=== PATIENT | male | born 1985 | race Caucasian/White ===

== ENCOUNTER 2020-07-17 14:13 | Inpatient (IN) | payer MEDICAID ==
[~2020-07-17] VITALS: Ht 170.2 cm; Wt 140.6 kg
[2020-07-17] MEDS ORDERED: ACETAMINOPHEN 325MG TABLET PO STA (14:55)
[2020-07-17] MEDS ORDERED: SODIUM CHLORIDE 0.9% 1,000 ML IV ONE (14:55)
[2020-07-17 15:45] LABS: BASOPHILS % 0.6 % (0.0-2.0); EOSINOPHILS % 1.9 % (0.0-5.0); HEMOGLOBIN. 12.8 g/dL (14.0-18.0); MEAN CORPUSCULAR VOLUME 94.9 fL (80.0-94.0); MEAN PLATELET VOLUME 8.7 fl (7.4-10.4); MONOCYTES % 5.6 % (2.0-8.0); NEUTROPHILS % 82.9 % (40.0-76.0); PLATELET 285 x1000/uL (130-400); RED CELL DISTRIBUTION WIDTH 13.8 % (11.6-14.6)
[2020-07-17 15:51] LABS: CHLORIDE 103 mEq/L (98-107)
[2020-07-17] MEDS ORDERED: CEFTRIAXONE 1 G PREMIX 50 ML IV ONE (16:00)
[2020-07-17] MEDS ORDERED: AZITHROMYCIN 500 MG in DEXT 5% WATER 250 ML IV ONE (16:00)
[2020-07-17 16:47] LABS: BG BASE EXCESS -1.6 mmol/L (-2.0-2.0); BG CARBOXYHEMOGLOBIN 0.3 % (0.5-1.5); BG DEOXYHEMOGLOBIN 7.4 % (0.0-5.0); BG FRACTION INSPIRED OXYGEN 36; BG METHEMOGLOBIN 0.4 % (0.0-1.5); BG OXYGEN SATURATION 92.5 % (92.0-98.5); BG OXYHEMOGLOBIN 91.9 % (94.0-97.0); BG PH 7.505 (7.350-7.450); BG PO2 62.6 mmHg (75.0-100.0); BG SAMPLE SITE RIGHT RADIAL; BG TOTAL HEMOGLOBIN 13.1 g/dL (12.0-18.0); BG VENT MODE NASAL CANNULA
[2020-07-17 18:02] LABS: BG CARBOXYHEMOGLOBIN 0.8 % (0.5-1.5); BG FRACTION INSPIRED OXYGEN 36; BG HCO3 ACT 21.7 mmol/L (22.0-26.0); BG METHEMOGLOBIN 0.2 % (0.0-1.5); BG OXYGEN SATURATION 92.9 % (92.0-98.5); BG PCO2 30.7 mmHg (35.0-45.0); BG PH 7.468 (7.350-7.450); BG PO2 65.9 mmHg (75.0-100.0); BG SAMPLE SITE RIGHT RADIAL; BG TOTAL HEMOGLOBIN 13.2 g/dL (12.0-18.0); BG VENT MODE NASAL CANNULA
[2020-07-17 18:07] LABS: CLARITY URINE CLEAR (CLEAR); COLOR URINE DARK YELLOW (YELLOW); KETONES URINE NEGATIVE (NEGATIVE); LEUKOCYTE ESTERASE URINE TRACE (NEGATIVE); NITRITE URINE NEGATIVE (NEGATIVE); OCCULT BLOOD URINE NEGATIVE (NEGATIVE); PH URINE 6.5 (4.5-8.0); PROTEIN URINE 1+ (NEGATIVE); SPECIFIC GRAVITY URINE 1.023 (1.005-1.030); UROBILINOGEN URINE >8.0 E.U./dL (0.2-1.0)
[2020-07-17] MEDS ORDERED: ACETAMINOPHEN 325MG TABLET PO PRN (22:45)
[2020-07-17] MEDS ORDERED: CEFTRIAXONE 1 G PREMIX 50 ML IV SCH (22:45)
[2020-07-17] MEDS ORDERED: AZITHROMYCIN 500 MG in DEXT 5% WATER 250 ML IV SCH (22:45)
[2020-07-17] MEDS ORDERED: ZOLPIDEM TARTRATE 5MG TABLET PO PRN (22:45)
[2020-07-17] MEDS ORDERED: POTASSIUM CHLORIDE 20MEQ TABLET SR PO NR (23:15)
[2020-07-18] MEDS ORDERED: IPRATROPIUM/ALBUTEROL 0.5-3(2.5)MG/3ML NEB HHN SCH
[2020-07-18 04:42] VITALS: BP 168/103
[2020-07-18] MEDS ORDERED: PHEN1PAC8 PO (05:18)
[2020-07-18] MEDS ORDERED: IBUP-516 MT (05:19)
[2020-07-18 07:50] LABS: BASOPHILS % 0.3 % (0.0-2.0); EOSINOPHILS % 0.7 % (0.0-5.0); HEMATOCRIT. 39.4 % (42.0-52.0); HEMOGLOBIN. 13.2 g/dL (14.0-18.0); LYMPHOCYTES % 8.3 % (20.0-50.0); MEAN CORPUSCULAR HEMOGLOBIN 31.5 pg (28.0-32.0); MEAN CORPUSCULAR VOLUME 94.1 fL (80.0-94.0); MONOCYTES % 7.6 % (2.0-8.0); NEUTROPHILS % 83.1 % (40.0-76.0); PLATELET 289 x1000/uL (130-400); RED BLOOD CELL COUNT 4.18 mill/uL (4.7-6.1); RED CELL DISTRIBUTION WIDTH 13.6 % (11.6-14.6)
[2020-07-18 08:00] VITALS: BP 178/117
[2020-07-18] MEDS ORDERED: PNEUMOCOCCAL 23-VAL P-SAC VAC 0.5 ML IM ONE (08:00)
[2020-07-18 08:01] LABS: CHLORIDE 104 mEq/L (98-107)
[2020-07-18] MEDS ORDERED: DEXAMETHASONE 4MG TABLET PO SCH (09:00)
[2020-07-18] MEDS: ENOXAPARIN 40MG/0.4ML SYR SUBCUT SCH ×2 (09:48→20:10)
[2020-07-18] MEDS: FAMOTIDINE 20MG TABLET PO SCH ×2 (09:49→16:32)
[2020-07-18] MEDS ORDERED: ACETAMINOPHEN 325MG TABLET PO PRN (11:00)
[2020-07-18] MEDS ORDERED: CLONIDINE 0.1MG TABLET PO PRN (11:00)
[2020-07-18] MEDS: LOSARTAN POTASSIUM 100 MG TABLET PO SCH (11:23)
[2020-07-18 12:00] VITALS: BP 150/95
[2020-07-18] MEDS ORDERED: ALBUTEROL 6.7GM HFA INHALER ORI PRN (12:00)
[2020-07-18] MEDS: CEFTRIAXONE 1,000 MG in DEXTROSE 5% WATER 50 ML IV SCH (14:11)
[2020-07-18 16:00] VITALS: BP 153/80
[2020-07-18] MEDS: ALPRAZOLAM 0.5 MG TABLET PO PRN (16:32)
[2020-07-18] MEDS: AZITHROMYCIN 500MG in DEXTROSE 5% WATER 250ML IV SCH (17:24)
[2020-07-18 20:00] VITALS: BP 101/68
[2020-07-18 23:20] LABS: *AMPHETAMINES SCREEN URINE NEGATIVE (NEGATIVE); *BARBITURATES SCREEN URINE NEGATIVE (NEGATIVE); *BENZODIAZEPINES SCREEN URINE NEGATIVE (NEGATIVE); *COCAINE SCREEN URINE NEGATIVE (NEGATIVE)
[2020-07-18 23:21] LABS: CANNABINOID URINE SCREEN NEGATIVE (NEGATIVE); METHADONE URINE SCREEN NEGATIVE (NEGATIVE); PHENCYCLIDINE URINE SCREEN NEGATIVE (NEGATIVE)
[2020-07-18 23:22] LABS: OPIATES URINE SCREEN NEGATIVE (NEGATIVE)
[2020-07-19] VITALS: BP 126/93
[2020-07-19 04:00] VITALS: BP 127/88
[2020-07-19 06:29] LABS: CHLORIDE 102 mEq/L (98-107)
[2020-07-19 06:30] LABS: HEMATOCRIT. 37.5 % (42.0-52.0); HEMOGLOBIN. 12.3 g/dL (14.0-18.0); MEAN CORPUSCULAR HEMOGLOBIN 31.4 pg (28.0-32.0); MEAN CORPUSCULAR VOLUME 95.6 fL (80.0-94.0); MEAN PLATELET VOLUME 8.3 fl (7.4-10.4); PLATELET 331 x1000/uL (130-400); RED BLOOD CELL COUNT 3.92 mill/uL (4.7-6.1); RED CELL DISTRIBUTION WIDTH 13.8 % (11.6-14.6)
[2020-07-19 08:00] VITALS: BP 145/88
[2020-07-19] MEDS: DEXAMETHASONE 10 MG/ML VIAL IV SCH (08:23)
[2020-07-19] MEDS: ALPRAZOLAM 0.5 MG TABLET PO PRN (08:24)
[2020-07-19] MEDS: FAMOTIDINE 20MG TABLET PO SCH ×2 (08:24→16:09)
[2020-07-19] MEDS: ENOXAPARIN 40MG/0.4ML SYR SUBCUT SCH ×2 (08:24→19:56)
[2020-07-19] MEDS: LOSARTAN POTASSIUM 100 MG TABLET PO SCH (08:24)
[2020-07-19 11:20] LABS: PLATELET ESTIMATE NORMAL
[2020-07-19 12:00] VITALS: BP 125/96
[2020-07-19] MEDS ORDERED: VANCOMYCIN 2,000 MG in DEXT 5% WATER 500 ML IV SCH (12:00)
[2020-07-19] MEDS: CEFTRIAXONE 1,000 MG in DEXTROSE 5% WATER 50 ML IV SCH (13:54)
[2020-07-19] MEDS: AZITHROMYCIN 500MG in DEXTROSE 5% WATER 250ML IV SCH (14:01)
[2020-07-19 16:00] VITALS: BP 122/83
[2020-07-19] MEDS: VANCOMYCIN 1500MG in DEXTROSE 5% WATER 250ML IV SCH (19:56)
[2020-07-19 20:00] VITALS: BP 132/69
[2020-07-20] VITALS (7 sets, daily range): BP systolic 115–137; BP diastolic 56–90
[2020-07-20] MEDS: VANCOMYCIN 1500MG in DEXTROSE 5% WATER 250ML IV SCH ×2 (03:37→11:06)
[2020-07-20 07:17] LABS: BASOPHILS % 0.5 % (0.0-2.0); EOSINOPHILS % 0.2 % (0.0-5.0); HEMATOCRIT. 35.7 % (42.0-52.0); HEMOGLOBIN. 11.9 g/dL (14.0-18.0); LYMPHOCYTES % 8.8 % (20.0-50.0); MEAN CORPUSCULAR HEMOGLOBIN 32.1 pg (28.0-32.0); MEAN CORPUSCULAR VOLUME 95.9 fL (80.0-94.0); MEAN PLATELET VOLUME 8.2 fl (7.4-10.4); MONOCYTES % 5.8 % (2.0-8.0); NEUTROPHILS % 84.7 % (40.0-76.0); PLATELET 369 x1000/uL (130-400); RED BLOOD CELL COUNT 3.72 mill/uL (4.7-6.1); RED CELL DISTRIBUTION WIDTH 13.7 % (11.6-14.6)
[2020-07-20 07:22] LABS: CHLORIDE 103 mEq/L (98-107)
[2020-07-20] MEDS: FAMOTIDINE 20MG TABLET PO SCH ×2 (08:15→16:00)
[2020-07-20] MEDS: ENOXAPARIN 40MG/0.4ML SYR SUBCUT SCH ×2 (08:15→20:09)
[2020-07-20] MEDS: DEXAMETHASONE 10 MG/ML VIAL IV SCH (08:15)
[2020-07-20] MEDS: LOSARTAN POTASSIUM 100 MG TABLET PO SCH (08:23)
[2020-07-20] MEDS ORDERED: ALBUTEROL (0.083%) 2.5MG/3ML NEB HHN PRN (12:30)
[2020-07-20] MEDS: CEFTRIAXONE 1,000 MG in DEXTROSE 5% WATER 50 ML IV SCH (13:13)
[2020-07-20 14:10] LABS: BG BASE EXCESS 0.8 mmol/L (-2.0-2.0); BG CARBOXYHEMOGLOBIN 0.7 % (0.5-1.5); BG DEOXYHEMOGLOBIN 11.8 % (0.0-5.0); BG FRACTION INSPIRED OXYGEN 21; BG HCO3 ACT 25.1 mmol/L (22.0-26.0); BG METHEMOGLOBIN 0.1 % (0.0-1.5); BG OXYGEN SATURATION 88.1 % (92.0-98.5); BG OXYHEMOGLOBIN 87.4 % (94.0-97.0); BG PCO2 39.1 mmHg (35.0-45.0); BG PH 7.426 (7.350-7.450); BG PO2 57.4 mmHg (75.0-100.0); BG SAMPLE SITE RIGHT RADIAL; BG TOTAL HEMOGLOBIN 13.6 g/dL (12.0-18.0); BG VENT MODE ROOM AIR
[2020-07-20] MEDS: AZITHROMYCIN 500MG in DEXTROSE 5% WATER 250ML IV SCH (16:00)
[2020-07-21] VITALS: BP 128/85
[2020-07-21 04:00] VITALS: BP 105/78
[2020-07-21 08:00] VITALS: BP 137/97
[2020-07-21] MEDS: FAMOTIDINE 20MG TABLET PO SCH ×2 (08:32→17:39)
[2020-07-21] MEDS: DEXAMETHASONE 10 MG/ML VIAL IV SCH (08:32)
[2020-07-21] MEDS: ENOXAPARIN 40MG/0.4ML SYR SUBCUT SCH ×2 (08:33→22:42)
[2020-07-21] MEDS: LOSARTAN POTASSIUM 100 MG TABLET PO SCH (08:38)
[2020-07-21 12:00] VITALS: BP 117/81
[2020-07-21] MEDS: AZITHROMYCIN 500MG in DEXTROSE 5% WATER 250ML IV SCH (14:23)
[2020-07-21] MEDS: CEFTRIAXONE 1,000 MG in DEXTROSE 5% WATER 50 ML IV SCH (15:20)
[2020-07-21 16:00] VITALS: BP 113/82
[2020-07-21 20:00] VITALS: BP 118/70
[2020-07-22] VITALS: BP 141/91
[2020-07-22 04:00] VITALS: BP 132/87
[2020-07-22 08:00] VITALS: BP 133/97
[2020-07-22] MEDS: FAMOTIDINE 20MG TABLET PO SCH (08:14)
[2020-07-22] MEDS: ENOXAPARIN 40MG/0.4ML SYR SUBCUT SCH (08:14)
[2020-07-22] MEDS: LOSARTAN POTASSIUM 100 MG TABLET PO SCH (08:14)
[2020-07-22] MEDS: DEXAMETHASONE 10 MG/ML VIAL IV SCH (08:14)
[2020-07-22 12:00] VITALS: BP 131/89
[2020-07-22] MEDS ORDERED: LOSA100T3 PO (13:08)
[2020-07-22] MEDS ORDERED: ALBU18HF2 IH (13:08)
[2020-07-22 13:35] VITALS: BP 131/89
[2020-07-22] MEDS: CEFTRIAXONE 1,000 MG in DEXTROSE 5% WATER 50 ML IV SCH (14:00)
[2020-07-23 08:08] LABS: HIV SCREEN 4G Non Reactive (Non Reactive)
== END 2020-07-22 15:10 | disposition home or self-care (01) | DRG 720 ==
LOC: ER 14:38 → 7WST 17:31 → EDBEDREQ 17:35 → EDBEDREQTM 17:35 → ENRESERV 19:16 → CANRESERV 19:16 → 5WST 07-20 12:07 → 7WST 07-20 15:48 → 6WST 07-21 18:38
PROVIDERS: ADMIT Internal Medicine; ATTEND Internal Medicine
DX: A41.89 Other specified sepsis (principal); J96.01 Acute respiratory failure with hypoxia; E43 Unspecified severe protein-calorie malnutrition; D64.9 Anemia, unspecified; E66.01 Morbid (severe) obesity due to excess calories; E87.1 Hypo-osmolality and hyponatremia; E87.6 Hypokalemia; F15.90 Other stimulant use, unspecified, uncomplicated; Z20.828 Contact with and (suspected) exposure to other viral communicable diseases; G47.10 Hypersomnia, unspecified; I10 Essential (primary) hypertension; J15.9 Unspecified bacterial pneumonia; Z68.42 Body mass index [BMI] 45.0-49.9, adult; Z79.899 Other long term (current) drug therapy; Z71.3 Dietary counseling and surveillance; Z71.51 Drug abuse counseling and surveillance of drug abuser
CPT/HCPCS: 36415; 36600; 71045; 80048; 80053; 80202; 80305; 81003; 82375; 82728; 82805; 83880; 85025; 87389; 87635; 93005; 99291; J0456; J0696; J1100; J1650; J3370; J7030; J7060; J8540

== ENCOUNTER 2021-01-02 21:55 | Inpatient (IN) | payer MEDICAID ==
[~2021-01-02] VITALS: Ht 172.7 cm; Wt 130.2 kg
[2021-01-02] MEDS ORDERED: ACETAMINOPHEN 325MG TABLET PO STA (22:46)
[2021-01-02] MEDS ORDERED: CEFTRIAXONE 1 G PREMIX 50 ML IV ONE (23:00)
[2021-01-02] MEDS ORDERED: AZITHROMYCIN 500 MG in DEXT 5% WATER 250 ML IV ONE (23:00)
[2021-01-02 23:03] LABS: BASOPHILS % 0.8 % (0.0-2.0); HEMATOCRIT. 36.9 % (42.0-52.0); HEMOGLOBIN. 11.8 g/dL (14.0-18.0); MEAN CORPUSCULAR HEMOGLOBIN 30.3 pg (28.0-32.0); MEAN CORPUSCULAR VOLUME 94.4 fL (80.0-94.0); MEAN PLATELET VOLUME 8.5 fl (7.4-10.4); MONOCYTES % 7.2 % (2.0-8.0); PLATELET 288 x1000/uL (130-400); RED BLOOD CELL COUNT 3.91 mill/uL (4.7-6.1); RED CELL DISTRIBUTION WIDTH 16.7 % (11.6-14.6)
[2021-01-02 23:19] LABS: CHLORIDE 104 mEq/L (98-107)
[2021-01-03] MEDS ORDERED: FUROSEMIDE 20MG/2ML VIAL IVP ONE
[2021-01-03 02:48] LABS: BG CARBOXYHEMOGLOBIN 0.6 % (0.5-1.5); BG DEOXYHEMOGLOBIN 1.8 % (0.0-5.0); BG FRACTION INSPIRED OXYGEN 40; BG HCO3 ACT 25.3 mmol/L (22.0-26.0); BG METHEMOGLOBIN 0.4 % (0.0-1.5); BG OXYGEN SATURATION 98.2 % (92.0-98.5); BG OXYHEMOGLOBIN 97.2 % (94.0-97.0); BG PCO2 39.5 mmHg (35.0-45.0); BG PH 7.425 (7.350-7.450); BG SAMPLE SITE RIGHT RADIAL; BG VENT MODE MASK - BIPAP
[2021-01-03 10:30] VITALS: BP 115/74
[2021-01-03] MEDS ORDERED: DIGOXIN 500MCG/2ML AMP IV NR (10:51)
[2021-01-03] MEDS ORDERED: ACETAMINOPHEN 325MG TABLET PO PRN (11:45)
[2021-01-03] MEDS ORDERED: IPRATROPIUM BROMIDE (0.02%) 0.5MG/2.5ML NEB HHN PRN (11:45)
[2021-01-03] MEDS ORDERED: ONDANSETRON HCL 4MG/2ML INJ IV PRN (11:45)
[2021-01-03] MEDS ORDERED: METOPROLOL TARTRATE 50MG TABLET PO SCH (12:30)
[2021-01-03 13:30] VITALS: BP 115/79
[2021-01-03] MEDS: FUROSEMIDE 40MG/4ML VIAL IVP SCH ×2 (14:22→16:51)
[2021-01-03] MEDS: CARVEDILOL 12.5MG TABLET PO SCH ×2 (14:23→21:43)
[2021-01-03 15:49] LABS: *AMPHETAMINES SCREEN URINE NEGATIVE (NEGATIVE); *BARBITURATES SCREEN URINE NEGATIVE (NEGATIVE); *BENZODIAZEPINES SCREEN URINE NEGATIVE (NEGATIVE); *COCAINE SCREEN URINE NEGATIVE (NEGATIVE); METHADONE URINE SCREEN NEGATIVE (NEGATIVE)
[2021-01-03 15:50] LABS: CANNABINOID URINE SCREEN NEGATIVE (NEGATIVE); OPIATES URINE SCREEN NEGATIVE (NEGATIVE); PHENCYCLIDINE URINE SCREEN NEGATIVE (NEGATIVE)
[2021-01-03 16:00] VITALS: BP 114/66
[2021-01-03 19:48] VITALS: BP 107/56
[2021-01-03] MEDS: ENOXAPARIN 40MG/0.4ML SYR SUBCUT SCH (20:53)
[2021-01-03] MEDS ORDERED: CARVEDILOL 6.25 MG TABLET PO SCH (21:00)
[2021-01-03] MEDS ORDERED: CEFTRIAXONE 1 G PREMIX 50 ML IV SCH (21:00)
[2021-01-03] MEDS: CEFTRIAXONE 1,000 MG in DEXTROSE 5% WATER 50 ML IV SCH (21:43)
[2021-01-04] VITALS (9 sets, daily range): BP systolic 96–147; BP diastolic 63–121
[2021-01-04 06:10] LABS: BASOPHILS % 0.8 % (0.0-2.0); EOSINOPHILS % 4.8 % (0.0-5.0); HEMATOCRIT. 32.7 % (42.0-52.0); HEMOGLOBIN. 10.8 g/dL (14.0-18.0); LYMPHOCYTES % 18.6 % (20.0-50.0); MEAN CORPUSCULAR VOLUME 93.6 fL (80.0-94.0); MEAN PLATELET VOLUME 8.3 fl (7.4-10.4); MONOCYTES % 7.1 % (2.0-8.0); NEUTROPHILS % 68.7 % (40.0-76.0); PLATELET 251 x1000/uL (130-400); RED BLOOD CELL COUNT 3.49 mill/uL (4.7-6.1); RED CELL DISTRIBUTION WIDTH 16.1 % (11.6-14.6)
[2021-01-04 07:30] LABS: CHLORIDE 101 mEq/L (98-107)
[2021-01-04] MEDS: FUROSEMIDE 40MG/4ML VIAL IVP SCH ×2 (08:05→17:39)
[2021-01-04] MEDS: AZITHROMYCIN 250 MG TABLET PO SCH (08:06)
[2021-01-04] MEDS: ENOXAPARIN 40MG/0.4ML SYR SUBCUT SCH ×2 (08:06→21:19)
[2021-01-04] MEDS: CARVEDILOL 12.5MG TABLET PO SCH ×2 (09:00→21:20)
[2021-01-04] MEDS: LOSARTAN POTASSIUM 25 MG TABLET PO SCH (09:00)
[2021-01-04] MEDS ORDERED: METOLAZONE 2.5MG TABLET PO NR ×2 (10:20→20:00)
[2021-01-04] MEDS ORDERED: DIGOXIN 500MCG/2ML AMP IV NR ×3 (14:14→18:30)
[2021-01-04] MEDS ORDERED: POTASSIUM CHLORIDE 20MEQ TABLET SR PO NR ×2 (16:30)
[2021-01-04] MEDS ORDERED: MAGNESIUM 2 G PREMIX 50 ML IV NR (17:30)
[2021-01-04] MEDS ORDERED: IOHEXOL 350 MG/ML 200ML INFUS..BTL IV ONE (18:43)
[2021-01-04] MEDS: CEFTRIAXONE 1,000 MG in DEXTROSE 5% WATER 50 ML IV SCH (21:20)
[2021-01-05] VITALS (10 sets, daily range): BP systolic 104–151; BP diastolic 60–95
[2021-01-05] MEDS ORDERED: ONDANSETRON HCL 4MG/2ML INJ IV PRN (06:15)
[2021-01-05] MEDS: FUROSEMIDE 40MG/4ML VIAL IVP SCH ×2 (06:32→17:54)
[2021-01-05 06:57] LABS: BASOPHILS % 0.8 % (0.0-2.0); EOSINOPHILS % 4.6 % (0.0-5.0); HEMATOCRIT. 36.2 % (42.0-52.0); HEMOGLOBIN. 12.1 g/dL (14.0-18.0); LYMPHOCYTES % 15.1 % (20.0-50.0); MEAN CORPUSCULAR HEMOGLOBIN 31.1 pg (28.0-32.0); MEAN CORPUSCULAR VOLUME 93.5 fL (80.0-94.0); MEAN PLATELET VOLUME 8.1 fl (7.4-10.4); MONOCYTES % 7.1 % (2.0-8.0); NEUTROPHILS % 72.4 % (40.0-76.0); PLATELET 290 x1000/uL (130-400); RED BLOOD CELL COUNT 3.88 mill/uL (4.7-6.1); RED CELL DISTRIBUTION WIDTH 16.4 % (11.6-14.6)
[2021-01-05 07:17] LABS: CHLORIDE 99 mEq/L (98-107)
[2021-01-05] MEDS: LOSARTAN POTASSIUM 25 MG TABLET PO SCH (08:02)
[2021-01-05] MEDS: ENOXAPARIN 40MG/0.4ML SYR SUBCUT SCH (08:02)
[2021-01-05] MEDS: AZITHROMYCIN 250 MG TABLET PO SCH (08:02)
[2021-01-05] MEDS: CARVEDILOL 12.5MG TABLET PO SCH (08:02)
[2021-01-05] MEDS ORDERED: POTASSIUM CHLORIDE 20MEQ TABLET SR PO STA (09:44)
[2021-01-05] MEDS ORDERED: DIGOXIN 500MCG/2ML AMP IV NR ×2 (10:28→18:00)
[2021-01-05] MEDS: METOPROLOL TARTRATE 25MG TABLET PO SCH ×3 (10:39→21:14)
[2021-01-05 10:56] LABS: T4 FREE 1.13 ng/dL (0.76-1.46)
[2021-01-05] MEDS ORDERED: MIDODRINE HCL 2.5MG TABLET PO NR (11:30)
[2021-01-05] MEDS ORDERED: METOPROLOL TARTRATE 5MG/5ML VIAL IV STA (14:06)
[2021-01-05] MEDS ORDERED: DILTIAZEM HCL 5MG/ML 5ML VIAL IV NR ×2 (16:36→20:45)
[2021-01-05] MEDS ORDERED: ENOXAPARIN 150MG/ML SYR SUBCUT SCH (18:00)
[2021-01-05] MEDS: CEFTRIAXONE 1,000 MG in DEXTROSE 5% WATER 50 ML IV SCH (21:14)
[2021-01-05] MEDS: MIDODRINE HCL 2.5MG TABLET PO SCH (21:14)
[2021-01-05] MEDS ORDERED: PHENYLEPHRINE 50 MG in DEXT 5% WATER 245 ML IV PRN (23:15)
[2021-01-06] VITALS (91 sets, daily range): BP systolic 86–223; BP diastolic 25–137
[2021-01-06] MEDS: DILTIAZEM HCL 125 MG in DEXT 5% WATER 100 ML IV PRN ×3 (01:07→18:31)
[2021-01-06] MEDS: MIDODRINE HCL 2.5MG TABLET PO SCH ×3 (05:00→22:24)
[2021-01-06 05:30] LABS: BASOPHILS % 1.3 % (0.0-2.0); EOSINOPHILS % 3.5 % (0.0-5.0); HEMATOCRIT. 39.3 % (42.0-52.0); HEMOGLOBIN. 13.1 g/dL (14.0-18.0); LYMPHOCYTES % 16.9 % (20.0-50.0); MEAN CORPUSCULAR HEMOGLOBIN 30.9 pg (28.0-32.0); MEAN CORPUSCULAR VOLUME 92.8 fL (80.0-94.0); MEAN PLATELET VOLUME 8.1 fl (7.4-10.4); MONOCYTES % 8.5 % (2.0-8.0); NEUTROPHILS % 69.8 % (40.0-76.0); PLATELET 342 x1000/uL (130-400); RED BLOOD CELL COUNT 4.23 mill/uL (4.7-6.1)
[2021-01-06 05:41] LABS: CHLORIDE 97 mEq/L (98-107)
[2021-01-06 05:50] LABS: INR 1.1; PARTIAL THROMBOPLASTIN TIME 30.2 sec (23.4-31.0); PROTHROMBIN TIME 11.3 sec (9.6-11.0)
[2021-01-06] MEDS: METOPROLOL TARTRATE 25MG TABLET PO SCH ×3 (06:01→22:00)
[2021-01-06] MEDS: FUROSEMIDE 40MG/4ML VIAL IVP SCH ×2 (06:01→17:31)
[2021-01-06] MEDS: AZITHROMYCIN 250 MG TABLET PO SCH (09:01)
[2021-01-06] MEDS: CEFTRIAXONE 1,000 MG in DEXTROSE 5% WATER 50 ML IV SCH (21:07)
[2021-01-07] VITALS (56 sets, daily range): BP systolic 102–162; BP diastolic 24–109
[2021-01-07] MEDS: MIDODRINE HCL 2.5MG TABLET PO SCH ×3 (05:00→20:55)
[2021-01-07 05:58] LABS: CHLORIDE 95 mEq/L (98-107)
[2021-01-07 05:59] LABS: EOSINOPHILS % 3.1 % (0.0-5.0); HEMATOCRIT. 40.3 % (42.0-52.0); HEMOGLOBIN. 13.5 g/dL (14.0-18.0); MEAN CORPUSCULAR HEMOGLOBIN 30.7 pg (28.0-32.0); MEAN CORPUSCULAR VOLUME 91.4 fL (80.0-94.0); MEAN PLATELET VOLUME 7.1 fl (7.4-10.4); MONOCYTES % 9.2 % (2.0-8.0); NEUTROPHILS % 69.7 % (40.0-76.0); PLATELET 356 x1000/uL (130-400); RED BLOOD CELL COUNT 4.41 mill/uL (4.7-6.1)
[2021-01-07] MEDS: METOPROLOL TARTRATE 25MG TABLET PO SCH ×3 (06:00→21:09)
[2021-01-07 06:02] LABS: INR 1.1; PARTIAL THROMBOPLASTIN TIME 26.8 sec (23.4-31.0); PROTHROMBIN TIME 11.3 sec (9.6-11.0)
[2021-01-07] MEDS ORDERED: LIDOCAINE HCL 1% 20ML VIAL (Pyxis) INJ ONE ×2 (06:29→12:31)
[2021-01-07] MEDS: FUROSEMIDE 40MG/4ML VIAL IVP SCH ×2 (07:15→16:43)
[2021-01-07] MEDS ORDERED: ROCURONIUM BROMIDE 10MG/ML VIAL 5ML IV ONE ×3 (07:44→10:07)
[2021-01-07] MEDS ORDERED: ONDANSETRON HCL 4MG/2ML INJ ONE (07:44)
[2021-01-07] MEDS ORDERED: HYDROCORTISONE SOD SUCCINATE 100 MG/2 ML VIAL ONE (07:44)
[2021-01-07] MEDS ORDERED: EPHEDRINE SULFATE 50MG/ML VIAL ONE (07:45)
[2021-01-07] MEDS ORDERED: HEPARIN SODIUM 1,000 UNIT/1ML VIAL IV ONE (07:45)
[2021-01-07] MEDS ORDERED: PHENYLEPHRINE HCL 10 MG/ML 1ML (IV VIAL) IV ONE (07:45)
[2021-01-07] MEDS ORDERED: SODIUM CHLORIDE 0.9% 10ML VIAL ONE (07:46)
[2021-01-07] MEDS ORDERED: LIDOCAINE HCL/PF 2% 20MG/ML 5 ML/VIAL ONE (07:50)
[2021-01-07] MEDS ORDERED: ETOMIDATE 2MG/ML 10ML VIAL IV ONE (07:50)
[2021-01-07] MEDS ORDERED: SUCCINYLCHOLINE CHLORIDE 200MG/10ML IV ONE (07:55)
[2021-01-07] MEDS ORDERED: NOREPINEPHRINE BITARTRATE 1MG/ML 4ML IV ONE ×2 (07:59→08:28)
[2021-01-07] MEDS ORDERED: FENTANYL CITRATE/PF 50MCG/ML 2ML VIAL ONE (08:07)
[2021-01-07] MEDS ORDERED: MIDAZOLAM HCL 2 MG/2 ML VIAL ONE ×2 (08:07→08:52)
[2021-01-07] MEDS ORDERED: GLYCOPYRROLATE 0.2 MG/ML 2ML VIAL ONE (08:57)
[2021-01-07] MEDS: AZITHROMYCIN 250 MG TABLET PO SCH (09:00)
[2021-01-07] MEDS ORDERED: CEFAZOLIN SODIUM 1000MG/VIAL ONE (09:05)
[2021-01-07] MEDS ORDERED: FENTANYL CITRATE/PF 2,500 MCG in SODIUM CHLORIDE 0.9% 200 ML IV PRN (10:45)
[2021-01-07] MEDS ORDERED: PROPOFOL 10MG/ML 100ML 100 ML IV PRN (10:45)
[2021-01-07 12:07] LABS: BG BASE EXCESS 4.4 mmol/L (-2.0-2.0); BG CARBOXYHEMOGLOBIN 0.5 % (0.5-1.5); BG DEOXYHEMOGLOBIN 0.5 % (0.0-5.0); BG FRACTION INSPIRED OXYGEN 100; BG HCO3 ACT 29.3 mmol/L (22.0-26.0); BG METHEMOGLOBIN 0.4 % (0.0-1.5); BG OXYGEN SATURATION 99.5 % (92.0-98.5); BG OXYHEMOGLOBIN 98.6 % (94.0-97.0); BG PCO2 44.5 mmHg (35.0-45.0); BG PH 7.436 (7.350-7.450); BG SAMPLE SITE LEFT RADIAL; BG TOTAL HEMOGLOBIN 14.9 g/dL (12.0-18.0); BG VENT MODE VENT - AC
[2021-01-07] MEDS ORDERED: POTASSIUM CHLORIDE 20MEQ TABLET SR PO NR (14:42)
[2021-01-07] MEDS ORDERED: METOLAZONE 2.5MG TABLET PO NR (16:00)
[2021-01-07] MEDS: ENOXAPARIN 150MG/ML SYR SUBCUT SCH (21:09)
[2021-01-07] MEDS: CEFTRIAXONE 1,000 MG in DEXTROSE 5% WATER 50 ML IV SCH (21:09)
[2021-01-08] VITALS (38 sets, daily range): BP systolic 103–163; BP diastolic 41–100
[2021-01-08] MEDS: MIDODRINE HCL 2.5MG TABLET PO SCH (05:00)
[2021-01-08 05:53] LABS: CHLORIDE 97 mEq/L (98-107)
[2021-01-08 06:01] LABS: BASOPHILS % 0.7 % (0.0-2.0); EOSINOPHILS % 1.6 % (0.0-5.0); HEMATOCRIT. 41.5 % (42.0-52.0); HEMOGLOBIN. 13.6 g/dL (14.0-18.0); LYMPHOCYTES % 21.5 % (20.0-50.0); MEAN CORPUSCULAR HEMOGLOBIN 30.5 pg (28.0-32.0); MEAN CORPUSCULAR VOLUME 93.1 fL (80.0-94.0); MEAN PLATELET VOLUME 7.2 fl (7.4-10.4); MONOCYTES % 8.1 % (2.0-8.0); NEUTROPHILS % 68.1 % (40.0-76.0); PLATELET 322 x1000/uL (130-400); RED BLOOD CELL COUNT 4.46 mill/uL (4.7-6.1); RED CELL DISTRIBUTION WIDTH 16.1 % (11.6-14.6)
[2021-01-08] MEDS: METOPROLOL TARTRATE 25MG TABLET PO SCH (06:09)
[2021-01-08] MEDS: FUROSEMIDE 40MG/4ML VIAL IVP SCH ×2 (06:35→17:44)
[2021-01-08] MEDS: AZITHROMYCIN 250 MG TABLET PO SCH (08:47)
[2021-01-08] MEDS: ENOXAPARIN 150MG/ML SYR SUBCUT SCH (08:48)
[2021-01-08] MEDS ORDERED: POTASSIUM CHLORIDE 20MEQ TABLET SR PO NR (10:06)
[2021-01-08] MEDS: APIXABAN 5 MG TABLET PO SCH (17:44)
[2021-01-08] MEDS: CARVEDILOL 12.5MG TABLET PO SCH (20:00)
[2021-01-09] VITALS (32 sets, daily range): BP systolic 55–143; BP diastolic 23–105
[2021-01-09 05:47] LABS: BASOPHILS % 3.4 % (0.0-2.0); EOSINOPHILS % 2.6 % (0.0-5.0); HEMATOCRIT. 43.5 % (42.0-52.0); HEMOGLOBIN. 14.5 g/dL (14.0-18.0); LYMPHOCYTES % 22.4 % (20.0-50.0); MEAN CORPUSCULAR HEMOGLOBIN 30.7 pg (28.0-32.0); MEAN CORPUSCULAR VOLUME 92.4 fL (80.0-94.0); MEAN PLATELET VOLUME 7.1 fl (7.4-10.4); MONOCYTES % 8.1 % (2.0-8.0); NEUTROPHILS % 63.5 % (40.0-76.0); PLATELET 343 x1000/uL (130-400); RED BLOOD CELL COUNT 4.71 mill/uL (4.7-6.1); RED CELL DISTRIBUTION WIDTH 16.2 % (11.6-14.6)
[2021-01-09 05:52] LABS: CHLORIDE 98 mEq/L (98-107)
[2021-01-09] MEDS: FUROSEMIDE 40MG/4ML VIAL IVP SCH ×2 (06:31→17:49)
[2021-01-09] MEDS: APIXABAN 5 MG TABLET PO SCH ×2 (09:31→17:50)
[2021-01-09] MEDS: CARVEDILOL 12.5MG TABLET PO SCH ×2 (09:31→21:35)
[2021-01-09] MEDS: SPIRONOLACTONE 25MG TABLET PO SCH (17:50)
[2021-01-10] VITALS (10 sets, daily range): BP systolic 96–118; BP diastolic 48–66
[2021-01-10 05:43] LABS: BASOPHILS % 1.1 % (0.0-2.0); EOSINOPHILS % 2.5 % (0.0-5.0); HEMATOCRIT. 44.1 % (42.0-52.0); HEMOGLOBIN. 14.6 g/dL (14.0-18.0); LYMPHOCYTES % 21.6 % (20.0-50.0); MEAN CORPUSCULAR HEMOGLOBIN 30.3 pg (28.0-32.0); MEAN CORPUSCULAR VOLUME 91.9 fL (80.0-94.0); MEAN PLATELET VOLUME 7.2 fl (7.4-10.4); MONOCYTES % 9.3 % (2.0-8.0); NEUTROPHILS % 65.5 % (40.0-76.0); PLATELET 361 x1000/uL (130-400); RED CELL DISTRIBUTION WIDTH 15.9 % (11.6-14.6)
[2021-01-10 06:21] LABS: CHLORIDE 97 mEq/L (98-107)
[2021-01-10] MEDS: FUROSEMIDE 40MG/4ML VIAL IVP SCH ×2 (06:51→16:44)
[2021-01-10] MEDS: LOSARTAN POTASSIUM 25 MG TABLET PO SCH (09:00)
[2021-01-10] MEDS: APIXABAN 5 MG TABLET PO SCH ×2 (09:15→16:44)
[2021-01-10] MEDS: CARVEDILOL 12.5MG TABLET PO SCH ×2 (09:15→21:00)
[2021-01-10] MEDS: SPIRONOLACTONE 25MG TABLET PO SCH (09:15)
[2021-01-10] MEDS ORDERED: KCL 20MEQ/100ML PREMIX 100 ML IV NR (16:00)
[2021-01-11] VITALS: BP 109/62
[2021-01-11 04:00] VITALS: BP 108/72
[2021-01-11] MEDS: FUROSEMIDE 40MG/4ML VIAL IVP SCH (06:21)
[2021-01-11 07:47] LABS: EOSINOPHILS % 2.9 % (0.0-5.0); HEMATOCRIT. 46.4 % (42.0-52.0); HEMOGLOBIN. 15.3 g/dL (14.0-18.0); LYMPHOCYTES % 24.1 % (20.0-50.0); MEAN CORPUSCULAR HEMOGLOBIN 30.2 pg (28.0-32.0); MEAN CORPUSCULAR VOLUME 91.6 fL (80.0-94.0); MEAN PLATELET VOLUME 7.4 fl (7.4-10.4); MONOCYTES % 9.3 % (2.0-8.0); NEUTROPHILS % 62.7 % (40.0-76.0); PLATELET 370 x1000/uL (130-400); RED BLOOD CELL COUNT 5.07 mill/uL (4.7-6.1); RED CELL DISTRIBUTION WIDTH 15.7 % (11.6-14.6)
[2021-01-11 08:00] VITALS: BP 125/58
[2021-01-11 08:06] LABS: CHLORIDE 99 mEq/L (98-107)
[2021-01-11] MEDS: LOSARTAN POTASSIUM 25 MG TABLET PO SCH (09:36)
[2021-01-11] MEDS: APIXABAN 5 MG TABLET PO SCH (09:36)
[2021-01-11] MEDS: SPIRONOLACTONE 25MG TABLET PO SCH (09:36)
[2021-01-11] MEDS: CARVEDILOL 12.5MG TABLET PO SCH (09:40)
[2021-01-11] MEDS: POTASSIUM CHLORIDE INJ 40 MEQ in DEXT 5% WATER 250 ML IV NR ×2 (11:33→13:14)
[2021-01-11] MEDS ORDERED: POTASSIUM CHLORIDE 20MEQ TABLET SR PO NR (11:33)
[2021-01-11 12:00] VITALS: BP 106/69
[2021-01-11] MEDS ORDERED: FURO-151 MT (13:19)
[2021-01-11] MEDS ORDERED: APIX5TAB PO (13:19)
[2021-01-11] MEDS ORDERED: LOSA25TA3 PO (13:19)
[2021-01-11] MEDS ORDERED: COR12 PO (13:19)
[2021-01-11] MEDS ORDERED: SPIR25TA PO (13:19)
[2021-01-11 16:49] VITALS: BP 101/74
== END 2021-01-11 18:00 | disposition home or self-care (01) | DRG 710 ==
LOC: ER 21:55 → 7WST 23:57 → ENRESERV 01-03 08:20 → CANRESERV 01-03 08:20 → EDBEDREQSVC 01-03 09:05 → ENRESERV 01-03 10:02 → 6WST 01-03 23:50 → MICUNO 01-05 22:35 → CVICU 01-06 08:19 → 8WST 01-10 13:28
PROVIDERS: ADMIT Internal Medicine; ATTEND Internal Medicine
PROC: 5A09357 Assistance with Respiratory Ventilation, Less than 24 Consecutive Hours, Continuous Positive Airway Pressure (ICD-10-PCS; 2021-01-02)
PROC: 5A1935Z Respiratory Ventilation, Less than 24 Consecutive Hours (ICD-10-PCS; principal; 2021-01-07)
PROC: 0BH17EZ Insertion of Endotracheal Airway into Trachea, Via Natural or Artificial Opening (ICD-10-PCS; 2021-01-07)
PROC: 02583ZZ Destruction of Conduction Mechanism, Percutaneous Approach (ICD-10-PCS; 2021-01-07)
PROC: 4A0234Z Measurement of Cardiac Electrical Activity, Percutaneous Approach (ICD-10-PCS; 2021-01-07)
PROC: 03HY32Z Insertion of Monitoring Device into Upper Artery, Percutaneous Approach (ICD-10-PCS; 2021-01-07)
DX: A41.9 Sepsis, unspecified organism (principal); J96.01 Acute respiratory failure with hypoxia; I50.23 Acute on chronic systolic (congestive) heart failure; J68.0 Bronchitis and pneumonitis due to chemicals, gases, fumes and vapors; I27.20 Pulmonary hypertension, unspecified; I42.9 Cardiomyopathy, unspecified; E44.1 Mild protein-calorie malnutrition; E66.01 Morbid (severe) obesity due to excess calories; I11.0 Hypertensive heart disease with heart failure; E87.6 Hypokalemia; D64.9 Anemia, unspecified; I48.0 Paroxysmal atrial fibrillation; G47.33 Obstructive sleep apnea (adult) (pediatric); I48.3 Typical atrial flutter; F15.10 Other stimulant abuse, uncomplicated; F10.10 Alcohol abuse, uncomplicated; Y90.9 Presence of alcohol in blood, level not specified; Z86.16 Personal history of COVID-19; I34.0 Nonrheumatic mitral (valve) insufficiency; T65.891A Toxic effect of other specified substances, accidental (unintentional), initial encounter; Z20.822 Contact with and (suspected) exposure to COVID-19; Z91.19 Patient's noncompliance with other medical treatment and regimen; Z68.41 Body mass index [BMI] 40.0-44.9, adult; Z87.01 Personal history of pneumonia (recurrent); Z87.891 Personal history of nicotine dependence; Y92.89 Other specified places as the place of occurrence of the external cause; F19.10 Other psychoactive substance abuse, uncomplicated
CPT/HCPCS: 36415; 36600; 71045; 71275; 80048; 80053; 80305; 82375; 82805; 83605; 83735; 83880; 84132; 84145; 84439; 84443; 84478; 84484; 85025; 87426; 93005; 93306; 93613; 93621; 93653; 93662; 93970; 94002; 94660; 97162; 99291; A6261; C1730; C1731; C1732; C1759; C1893; J0330; J0456; J0690; J0696; J1160; J1644; J1650; J1720; J1940; J2250; J2370; J2405; J2704; J3010; J3475; J3480; J3490; J7040; J7050; J7060; Q9967; U0003; A4315

== ENCOUNTER 2023-09-30 10:43 | Emergency (ER) | payer MEDICAID ==
[~2023-09-30] VITALS: Ht 172.7 cm; Wt 154.0 kg
[~2023-09-30 10:43] MED LIST: APIX5TAB PO; COR12 PO; FURO-151 MT; LOSA-412 PO; SPIR25TA PO
[2023-09-30 10:48] VITALS: BP 129/89; PULSE 100; TEMP 98.9; O2SAT 96
[2023-09-30] MEDS ORDERED: BENZ100C86 MT (13:13)
== END 2023-09-30 13:51 | disposition home or self-care (01) ==
LOC: ER 10:43
DX: R05.9 Cough, unspecified (principal); I10 Essential (primary) hypertension
CPT/HCPCS: 99283